=== PATIENT | male | born 1960 | race Caucasian/White ===

== ENCOUNTER 2020-04-03 13:08 | Emergency (ER) | payer MEDICARE, SELFPAY ==
[2020-04-03] MEDS ORDERED: Tetracaine 0.5% OPHTH SOLN/PF 4 ML BOT ONE (13:34)
[2020-04-03] MEDS ORDERED: HYDROcodone/Acetaminophen 5/325 mg Tablet ONE (14:01)
== END 2020-04-03 14:05 | disposition home or self-care (01) ==
LOC: BURERS 13:08
DX: S05.02XA Injury of conjunctiva and corneal abrasion without foreign body, left eye, initial encounter (principal); I10 Essential (primary) hypertension; B19.20 Unspecified viral hepatitis C without hepatic coma; F31.9 Bipolar disorder, unspecified; F41.0 Panic disorder [episodic paroxysmal anxiety]; F17.210 Nicotine dependence, cigarettes, uncomplicated; W22.8XXA Striking against or struck by other objects, initial encounter
CPT/HCPCS: 99283

== ENCOUNTER 2020-05-27 09:24 | Emergency (ER) | payer SELFPAY ==
[2020-05-27] MEDS ORDERED: Lidocaine 1% w/Epinephrine 1:100K 20 ML VIAL ONE (09:51)
== END 2020-05-27 10:19 | disposition home or self-care (01) ==
LOC: BURERS 09:24
DX: S01.01XA Laceration without foreign body of scalp, initial encounter (principal); F31.9 Bipolar disorder, unspecified; F41.9 Anxiety disorder, unspecified; F17.210 Nicotine dependence, cigarettes, uncomplicated; Z79.899 Other long term (current) drug therapy; W20.8XXA Other cause of strike by thrown, projected or falling object, initial encounter
CPT/HCPCS: 12002

== ENCOUNTER 2020-06-12 10:44 | Emergency (ER) | payer SELFPAY ==
[2020-06-12] MEDS ORDERED: HYDROcodone/Acetaminophen 10/325 mg Tablet ONE (11:08)
[2020-06-12] MEDS ORDERED: Ketorolac Tromethamine 30 MG/ML VIAL ONE (11:08)
== END 2020-06-12 11:26 | disposition home or self-care (01) ==
LOC: BURERS 10:44
DX: M54.5 Low back pain (principal); G89.29 Other chronic pain; I10 Essential (primary) hypertension; F41.9 Anxiety disorder, unspecified; F31.9 Bipolar disorder, unspecified; F17.210 Nicotine dependence, cigarettes, uncomplicated; J44.9 Chronic obstructive pulmonary disease, unspecified
CPT/HCPCS: 96372; 99283; J1885

== ENCOUNTER 2020-07-22 11:09 | Emergency (ER) | payer SELFPAY ==
[2020-07-22] MEDS ORDERED: Morphine 2 MG/ML SYRINGE ONE (12:02)
[2020-07-22] MEDS ORDERED: Morphine 4 MG/ML VIAL ONE (12:02)
[2020-07-22] MEDS ORDERED: Ketorolac Tromethamine 30 MG/ML VIAL ONE (12:03)
[2020-07-22] MEDS ORDERED: predniSONE 20 MG TAB ONE (12:03)
== END 2020-07-22 12:59 | disposition home or self-care (01) ==
LOC: BURERS 11:09
DX: M54.5 Low back pain (principal); I10 Essential (primary) hypertension; F41.9 Anxiety disorder, unspecified; F31.9 Bipolar disorder, unspecified; F17.210 Nicotine dependence, cigarettes, uncomplicated
CPT/HCPCS: 96372; 99283; J1885; J2270; J7512

== ENCOUNTER → 2020-08-27 | Emergency (ER) | payer SELFPAY | LOC: BURERS 19:45 | DX: M54.5 Low back pain (principal); F41.9 Anxiety disorder, unspecified; F31.9 Bipolar disorder, unspecified; I10 Essential (primary) hypertension; F17.210 Nicotine dependence, cigarettes, uncomplicated | CPT/HCPCS: 99283 ==

== ENCOUNTER 2021-01-17 09:14 | Emergency (ER) | payer SELFPAY ==
[2021-01-17] MEDS ORDERED: HYDROcodone/Acetaminophen 5/325 mg Tablet ONE (09:46)
--- NOTE | 2021-01-17 13:33 | RAD ---
THORACIC SPINE: 01/17/21 A total of five views are submitted. Comparison is made with a lateral chest film dated 11/03/09. Mild to moderate degenerative changes are seen in the thoracic spine consisting of small anterior ost eophytes. There is slightly more prominent in size than in 2009. The disc spaces all appear normal in height. No bony destructive lesions are seen. On the spot view, the cervical spine is also shown. Th ere is pronounced disc space narrowing at C5-C6 with osteophytes present anteriorly and posteriorly s urrounding the C5 vertebra. IMPRESSION: 1. Mild thoracic degenerative change. 2. Moderately severe degenerative disc disease at C5-C6. POS: HOME
== END 2021-01-17 10:22 | disposition home or self-care (01) ==
LOC: BURERS 09:14
DX: G62.9 Polyneuropathy, unspecified (principal); I10 Essential (primary) hypertension; F17.210 Nicotine dependence, cigarettes, uncomplicated
CPT/HCPCS: 72072

== ENCOUNTER 2021-01-19 18:17 | Emergency (ER) | payer SELFPAY ==
[2021-01-19 19:28] LABS: #Eosinphils 0.2 thou/uL (0.0-0.7); #Lymphocytes 1.1 thou/uL (1.20-3.40); #Monocytes 0.6 thou/uL (0.11-0.59); #Neutrophils 3.3 thou/uL (1.40-6.50); %Basophils 0.7 % (0.0-1.0); %Eosinophils 4.7 % (0.0-10.0); %Lymphocytes 20.9 % (21.0-51.0); %Monocytes 10.5 % (0.0-10.0); %Neutrophils 63.3 % (42.0-75.0); Hemoglobin 12.6 g/dL (14.0-18.0); Mean Corpuscular HGB CONC 33.1 g/dL (32.0-36.0); Mean Corpuscular Volume 96.4 fL (78.0-98.0); Mean Platelet Volume 8.3 fL (7.4-10.4); Platelet Count 135 thou/uL (130-400); RBC Distribution Width 12.9 % (11.5-14.5); Red Blood Cell (RBC) Count 3.94 mill/uL (4.70-6.10); White Blood Cell (WBC) Count 5.3 thou/uL (4.8-10.8)
[2021-01-19 19:42] LABS: ALT (SGPT) 45 U/L (8-55); AST (SGOT) 47 U/L (5-34); Albumin 3.9 g/dL (3.5-5.0); Alkaline Phosphatase 75 U/L (40-110); Anion Gap 15 mmol/L (10-20); BUN (Urea Nitrogen) 22 mg/dL (8.4-25.7); Bilirubin, Total 0.4 mg/dL (0.2-1.2); Calc. Creatinine Clearance 0 mL/min (70-130); Calcium 9.5 mg/dL (7.8-10.44); Carbon Dioxide 24 mmol/L (22-29); Chloride 108 mmol/L (98-107); Globulin 2.8 g/dL (2.4-3.5); Glucose 124 mg/dL (70-105); Potassium 4.1 mmol/L (3.5-5.1); Protein, Total 6.7 g/dL (6.0-8.3); Sodium 143 mmol/L (136-145)
[2021-01-19 19:43] LABS: CK (CPK) 382 U/L (30-200); CRP (Inflammatory) Less than 0.50 mg/dL (= or < 0.5)
[2021-01-19] MEDS ORDERED: Lidocaine 5% Patch TD SCH (19:45)
== END 2021-01-19 20:16 | disposition home or self-care (01) ==
LOC: BURERS 18:17
DX: M54.6 Pain in thoracic spine (principal); Z79.899 Other long term (current) drug therapy; I10 Essential (primary) hypertension; F17.210 Nicotine dependence, cigarettes, uncomplicated
CPT/HCPCS: 36415; 80053; 82550; 85025; 86140; 99283

== ENCOUNTER 2021-01-21 12:27 | Emergency (ER) | payer SELFPAY ==
[2021-01-21] MEDS ORDERED: methylPREDNISolone Sod Succ/PF 125 MG/2 ML VIAL ONE (12:55)
== END 2021-01-21 13:13 | disposition home or self-care (01) ==
LOC: BURERS 12:27
DX: G89.29 Other chronic pain (principal); M54.6 Pain in thoracic spine; M19.90 Unspecified osteoarthritis, unspecified site; J44.9 Chronic obstructive pulmonary disease, unspecified; I10 Essential (primary) hypertension; F17.210 Nicotine dependence, cigarettes, uncomplicated
CPT/HCPCS: 96372; 99283; J2930

== ENCOUNTER 2021-01-24 14:16 | Emergency (ER) | payer SELFPAY ==
--- NOTE | 2021-01-24 16:15 | CT ---
EXAM: CT Chest Abd Pelvis WO Con PROVIDED CLINICAL HISTORY: Fall COMPARISON: None FINDINGS: The heart, pericardium and great vessels demonstrate an unremarkable unenhanced CT appearance. Parks ry calcium is demonstrated. There is no evidence for pleural fluid or pneumothorax. The lungs are free of significant opacity. There is are nondisplaced fractures involving the left ninth, 10th and 1 1th ribs. There is a peripheral nodular contour to the liver compatible with cirrhosis. The spleen is upper [place] its normal to mildly enlarged measuring about 12.8 cm in cranial caudal dimension. The solid abdominal organs are suboptimally evaluated in the absence of IV contrast material but demonstrate an otherwise unremarkable unenhanced CT appearance. There is no bowel dilatation, inflammatory fat stranding, free fluid or free air apparent. There is no additional fracture evident. Thoracic and lumbar coronal and sagittal reconstructions demonstrate normal spinal alignment and main tenance of vertebral body heights. IMPRESSION: 1. Nondisplaced left ninth 10th and 11th rib fractures. 2. No additional evidence for traumatic abnormality with limitations due to lack of IV contrast mater ial.
== END 2021-01-24 17:00 | disposition home or self-care (01) ==
LOC: BURERS 14:16
DX: S22.42XA Multiple fractures of ribs, left side, initial encounter for closed fracture (principal); I10 Essential (primary) hypertension; J44.9 Chronic obstructive pulmonary disease, unspecified; F17.210 Nicotine dependence, cigarettes, uncomplicated; W11.XXXA Fall on and from ladder, initial encounter
CPT/HCPCS: 71250; 74177

== ENCOUNTER 2022-08-03 11:20 | Emergency (ER) | payer MEDICARE, SELFPAY | END 2022-08-03 11:38 | disposition home or self-care (01) | LOC: BURERS 11:20 | DX: B86 Scabies (principal) | CPT/HCPCS: 99282 ==

== ENCOUNTER 2022-08-26 01:44 | Emergency (ER) | payer MEDICARE ==
[2022-08-26] MEDS ORDERED: Aspirin Chewable 81 MG TAB ONE (02:23)
== END 2022-08-26 02:28 | disposition left against medical advice (07) ==
LOC: BURERS 01:44
DX: R07.89 Other chest pain (principal); I10 Essential (primary) hypertension; J44.9 Chronic obstructive pulmonary disease, unspecified; F17.210 Nicotine dependence, cigarettes, uncomplicated
CPT/HCPCS: 71045; 93005

== ENCOUNTER 2022-10-26 15:21 | Emergency (ER) | payer MEDICARE ==
[2022-10-26] MEDS ORDERED: Fluorescein Opthalmic Strip ONE (16:19)
[2022-10-26] MEDS ORDERED: Tetracaine 0.5% PF 4 ML BOT ONE (16:19)
[2022-10-26] MEDS ORDERED: Erythromycin Base 0.5% Ophth Oint 3.5 gm Tube ONE (17:09)
== END 2022-10-26 17:13 | disposition home or self-care (01) ==
LOC: BURERS 15:21
DX: T15.02XA Foreign body in cornea, left eye, initial encounter (principal); W31.1XXA Contact with metalworking machines, initial encounter
CPT/HCPCS: 65205

== ENCOUNTER 2023-02-05 17:36 | Emergency (ER) | payer MEDICARE ==
[2023-02-05] MEDS ORDERED: Boostrix 0.5 ML (Tdap) VIAL (>/=7 yrs of age) ONE (18:09)
[2023-02-05] MEDS ORDERED: Lidocaine 1% w/Epinephrine 1:100K 50 ML VIAL ONE (18:09)
[2023-02-05] MEDS ORDERED: Bacitracin 1 PK ONE (19:13)
== END 2023-02-05 19:30 | disposition home or self-care (01) ==
LOC: BURERS 17:36
DX: S51.811A Laceration without foreign body of right forearm, initial encounter (principal); I10 Essential (primary) hypertension; J44.9 Chronic obstructive pulmonary disease, unspecified; F17.210 Nicotine dependence, cigarettes, uncomplicated; W26.8XXA Contact with other sharp object(s), not elsewhere classified, initial encounter; Z23 Encounter for immunization
CPT/HCPCS: 12034; 90471; 90715

== ENCOUNTER 2024-01-24 22:42 | Emergency (ER) | payer MEDICARE ==
[2024-01-24] MEDS ORDERED: Acetaminophen 500 MG TAB ONE (23:02)
== END 2024-01-25 00:41 | disposition home or self-care (01) ==
LOC: BURERS 22:42
DX: S01.81XA Laceration without foreign body of other part of head, initial encounter (principal); S20.212A Contusion of left front wall of thorax, initial encounter; I10 Essential (primary) hypertension; J44.9 Chronic obstructive pulmonary disease, unspecified; F17.210 Nicotine dependence, cigarettes, uncomplicated; Z79.899 Other long term (current) drug therapy; Y04.0XXA Assault by unarmed brawl or fight, initial encounter
CPT/HCPCS: 12011; 70450; 70486; 71250

== ENCOUNTER 2024-02-01 08:52 | Emergency (ER) | payer MEDICARE | END 2024-02-01 09:29 | disposition home or self-care (01) | LOC: BURERS 08:52 | DX: L08.9 Local infection of the skin and subcutaneous tissue, unspecified (principal); I10 Essential (primary) hypertension; J44.9 Chronic obstructive pulmonary disease, unspecified; F17.210 Nicotine dependence, cigarettes, uncomplicated | CPT/HCPCS: 99282 ==

== ENCOUNTER 2024-04-10 16:32 | Emergency (ER) | payer MEDICARE | END 2024-04-10 17:02 | disposition home or self-care (01) | LOC: BURERS 16:32 | DX: L08.9 Local infection of the skin and subcutaneous tissue, unspecified (principal); I10 Essential (primary) hypertension; J44.9 Chronic obstructive pulmonary disease, unspecified; F17.200 Nicotine dependence, unspecified, uncomplicated | CPT/HCPCS: 99283 ==

== ENCOUNTER 2024-04-20 21:47 | Emergency (ER) | payer MEDICARE | END 2024-04-20 22:38 | disposition home or self-care (01) | LOC: BURERS 21:47 | DX: B76.9 Hookworm disease, unspecified (principal); I10 Essential (primary) hypertension; F17.200 Nicotine dependence, unspecified, uncomplicated; J44.9 Chronic obstructive pulmonary disease, unspecified | CPT/HCPCS: 99284 ==

== ENCOUNTER 2024-04-27 09:30 | Emergency (ER) | payer MEDICARE ==
[2024-04-27] MEDS ORDERED: Ketorolac Tromethamine 30 MG (1 mL) VIAL ONE (09:55)
== END 2024-04-27 10:06 | disposition home or self-care (01) ==
LOC: BURERS 09:30
DX: M54.32 Sciatica, left side (principal); I10 Essential (primary) hypertension; J44.9 Chronic obstructive pulmonary disease, unspecified; F17.200 Nicotine dependence, unspecified, uncomplicated
CPT/HCPCS: 96372; 99283; J1885

== ENCOUNTER 2024-07-02 21:21 | Emergency (ER) | payer MEDICARE | END 2024-07-02 22:00 | disposition home or self-care (01) | LOC: BURERS 21:21 | DX: B76.9 Hookworm disease, unspecified (principal); I10 Essential (primary) hypertension; J44.9 Chronic obstructive pulmonary disease, unspecified; F17.210 Nicotine dependence, cigarettes, uncomplicated | CPT/HCPCS: 99283 ==

== ENCOUNTER 2024-08-06 22:42 | Emergency (ER) | payer MEDICARE ==
[2024-08-06] MEDS ORDERED: Dexamethasone 10 MG/ML VIAL ONE (23:12)
[2024-08-06] MEDS ORDERED: Ketorolac Tromethamine 30 MG (1 mL) VIAL ONE (23:12)
== END 2024-08-06 23:33 | disposition home or self-care (01) ==
LOC: BURERS 22:42
DX: S46.812A Strain of other muscles, fascia and tendons at shoulder and upper arm level, left arm, initial encounter (principal); S46.811A Strain of other muscles, fascia and tendons at shoulder and upper arm level, right arm, initial encounter; I10 Essential (primary) hypertension; J44.9 Chronic obstructive pulmonary disease, unspecified; F17.200 Nicotine dependence, unspecified, uncomplicated; W28.XXXA Contact with powered lawn mower, initial encounter
CPT/HCPCS: 96372; 99283; J1100; J1885

== ENCOUNTER 2024-09-22 18:21 | Emergency (ER) | payer MEDICARE ==
[2024-09-22 19:14] LABS: #Eosinophils 0.2 thou/uL (0.0-0.7); #Lymphocytes 1.5 thou/uL (1.20-3.40); #Monocytes 0.5 thou/uL (0.11-0.59); %Basophils 0.8 % (0.0-1.0); %Eosinophils 3.5 % (0.0-10.0); %Lymphocytes 29.3 % (21.0-51.0); %Monocytes 9.4 % (0.0-10.0); %Neutrophils 57.1 % (42.0-75.0); Hematocrit 38.9 % (42.0-52.0); Hemoglobin 12.5 g/dL (14.0-18.0); Mean Corpuscular HGB CONC 32.2 g/dL (32.0-36.0); Mean Corpuscular Hemoglobin 29.9 pg (27.0-31.0); Mean Platelet Volume 8.5 fL (7.4-10.4); Platelet Count 75 10x3/uL (130-400); RBC Distribution Width 13.4 % (11.5-14.5); Red Blood Cell (RBC) Count 4.19 mill/uL (4.70-6.10); White Blood Cell (WBC) Count 5.3 10x3/uL (4.8-10.8)
[2024-09-22 19:26] LABS: Platelet Adequacy Comment Appears Decreased
[2024-09-22 19:31] LABS: ALT (SGPT) 45 U/L (8-55); AST (SGOT) 63 U/L (5-34); Albumin 3.5 g/dL (3.4-4.8); Alkaline Phosphatase 91 U/L (40-110); Anion Gap 16 mmol/L (10-20); BUN (Urea Nitrogen) 29 mg/dL (8.4-25.7); Bilirubin, Total 0.5 mg/dL (0.2-1.2); Calc. Creatinine Clearance 0 mL/min (70-130); Calcium 9.2 mg/dL (7.8-10.44); Carbon Dioxide 18 mmol/L (23-31); Chloride 109 mmol/L (98-107); Estimated GFR 79; Globulin 3.2 g/dL (2.4-3.5); Glucose 142 mg/dL (80-115); Potassium 4.1 mmol/L (3.5-5.1); Protein, Total 6.7 g/dL (5.8-8.1); Sodium 139 mmol/L (136-145)
== END 2024-09-22 19:39 | disposition left against medical advice (07) ==
LOC: BURERS 18:21
DX: R07.9 Chest pain, unspecified (principal); I10 Essential (primary) hypertension; F17.200 Nicotine dependence, unspecified, uncomplicated; Y92.69 Other specified industrial and construction area as the place of occurrence of the external cause
CPT/HCPCS: 36415; 71045; 80053; 84484; 85025; 93005

== ENCOUNTER 2024-09-23 09:56 | Emergency (ER) | payer MEDICARE | END 2024-09-23 12:20 | disposition left against medical advice (07) | LOC: BURERS 09:56 | DX: R07.89 Other chest pain (principal); Z53.21 Procedure and treatment not carried out due to patient leaving prior to being seen by health care provider; I10 Essential (primary) hypertension; J44.9 Chronic obstructive pulmonary disease, unspecified; F17.200 Nicotine dependence, unspecified, uncomplicated | CPT/HCPCS: 93005; 99284 ==

== ENCOUNTER 2024-10-21 05:37 | Emergency (ER) | payer MEDICARE ==
[2024-10-21] MEDS ORDERED: Cyclobenzaprine 10 MG TAB ONE (06:10)
[2024-10-21] MEDS ORDERED: HYDROcodone/Acetaminophen 5/325 mg Tablet ONE (06:11)
== END 2024-10-21 06:59 | disposition home or self-care (01) ==
LOC: BURERS 05:37
DX: S16.1XXA Strain of muscle, fascia and tendon at neck level, initial encounter (principal); I10 Essential (primary) hypertension; J44.9 Chronic obstructive pulmonary disease, unspecified; F17.200 Nicotine dependence, unspecified, uncomplicated; X50.1XXA Overexertion from prolonged static or awkward postures, initial encounter; Y93.89 Activity, other specified
CPT/HCPCS: 93005; 99283

== ENCOUNTER 2024-12-26 02:33 | Emergency (ER) | payer MEDICARE, SELFPAY ==
[2024-12-26] MEDS ORDERED: predniSONE 20 MG TAB ONE (04:00)
[2024-12-26] MEDS ORDERED: HYDROcodone/Acetaminophen 5/325 mg Tablet ONE (04:00)
== END 2024-12-26 04:22 | disposition home or self-care (01) ==
LOC: BURERS 02:33
DX: M54.42 Lumbago with sciatica, left side (principal); I10 Essential (primary) hypertension; F17.200 Nicotine dependence, unspecified, uncomplicated; Z79.899 Other long term (current) drug therapy
CPT/HCPCS: 72100; J7512

== ENCOUNTER 2024-12-29 11:11 | Emergency (ER) | payer MEDICARE, SELFPAY | END 2024-12-29 11:41 | disposition home or self-care (01) | LOC: BURERS 11:11 | DX: M54.42 Lumbago with sciatica, left side (principal); I10 Essential (primary) hypertension; F17.290 Nicotine dependence, other tobacco product, uncomplicated | CPT/HCPCS: 99283 ==

== ENCOUNTER 2025-01-11 07:27 | Emergency (ER) | payer MEDICARE, OTHER ==
[2025-01-11] MEDS ORDERED: Dexamethasone 10 MG/ML VIAL ONE (07:37)
[2025-01-11] MEDS ORDERED: Ketorolac Tromethamine 60 MG/2 ML VIAL ONE (07:37)
[2025-01-11] MEDS ORDERED: Diazepam 5 MG TAB ONE (07:38)
[2025-01-11] MEDS ORDERED: Morphine 4 MG/ML VIAL ONE (08:05)
== END 2025-01-11 08:35 | disposition home or self-care (01) ==
LOC: EEVIPCON 07:27 → BURERS 07:27
DX: M54.42 Lumbago with sciatica, left side (principal); I10 Essential (primary) hypertension; J44.9 Chronic obstructive pulmonary disease, unspecified; F17.290 Nicotine dependence, other tobacco product, uncomplicated
CPT/HCPCS: 96372; J1100; J1885; J2270

== ENCOUNTER 2025-01-12 16:59 | Emergency (ER) | payer MEDICARE ==
[2025-01-12] MEDS ORDERED: Ketorolac Tromethamine 60 MG/2 ML VIAL ONE (17:03)
== END 2025-01-12 18:03 | disposition home or self-care (01) ==
LOC: BURERS 16:59
DX: M54.42 Lumbago with sciatica, left side (principal); I10 Essential (primary) hypertension; J44.9 Chronic obstructive pulmonary disease, unspecified; F17.290 Nicotine dependence, other tobacco product, uncomplicated
CPT/HCPCS: 96372; J1885